=== PATIENT | male | born 1950 | race Caucasian/White ===

== ENCOUNTER 2016-10-31 05:45 | Day surgery (SDC) | payer OTHER ==
--- NOTE | 2016-10-29 12:27 | GHP ---
[f rep st] PREOP HISTORY AND PHYSICAL HISTORY OF PRESENT ILLNESS: The patient is a 66-year-old male who is admitted at this time for recurrent right inguinal hernia. Patient has noted progressive bulge and symptoms in his right groin and presents with a reducible right inguinal hernia. Risks and options have been fully discussed and we plan on a laparoscopic right inguinal hernia repair. He does have some BPH symptoms , but no chronic constipation or chronic cough. He does run lung distances. PAST MEDICAL/SURGICAL HISTORY: Past history includes a back fusion in 2014. He had previous bilateral inguinal hernia repairs many years ago. He also had a melanoma removed. No other major surgeries or hospitalizations or serious illnesses. REVIEW OF SYSTEMS: Negative on a 10-point complete review of systems, except as related to the history of present illness and the past history. He does not smoke ALLERGIES: None. MEDICATIONS: Ramipril, Flomax, Lipitor and baby aspirin. PHYSICAL EXAMINATION: GENERAL: An alert healthy 66-year-old male in no acute distress. HEAD/NECK: No icterus. No adenopathy. No oral lesions. Neck is supple. Pupils are normal. CHEST: Clear and symmetric. CARDIAC: Regular rhythm. ABDOMEN: Soft. He has a reducible recurrent right inguinal hernia. GENITALIA: Normal. EXTREMITIES: Reveal full range of motion, full pulses. IMPRESSION: Recurrent right inguinal hernia. PLAN: Laparoscopic right inguinal hernia repair. Risks and options fully discussed. He wishes to proceed. /[id number]/MODL MTDD
[2016-10-31] MEDS ORDERED: ceFAZolin 2 GM/DEXTROSE 100 ML IV ONE (05:52)
[2016-10-31] MEDS ORDERED: LR 1,000 ML IV ONE (05:52)
[2016-10-31] MEDS ORDERED: LIDOCAINE 1% 2 ML INJ ID PRN (05:52)
[2016-10-31] MEDS ORDERED: BUPIVACAINE 0.5% 30 ML SDV ONE (06:48)
[2016-10-31] MEDS ORDERED: MIDAZOLAM 2 MG/2 ML VIAL IVP ONE (06:56)
--- NOTE | 2016-10-31 06:56 | PDANEPAE ---
ANE History of Present Illness right hernia ANE Past Medical History - Cardiovascular History Hx Hypertension: No Hx Arrhythmias: No Hx Chest Pain: No Hx Coronary Artery / Peripheral Vascular Disease: No Hx CHF / Valvular Disease: No Hx Palpitations: No - Pulmonary History Hx COPD: No Hx Asthma/Reactive Airway Disease: No Hx Recent Upper Respiratory Infection: No Hx Oxygen in Use at Home: No Hx Sleep Apnea: No Sleep Apnea Screening Result - Last Documented: Negative - Neurologic History Hx Cerebrovascular Accident: No Hx Seizures: No Hx Dementia: No - Endocrine History Hx Diabetes: No - Renal History Hx Renal Disorders: No - Liver History Hx Hepatic Disorders: No - Neurological & Psychiatric Hx Hx Neurological and Psychiatric Disorders: No - Cancer History Hx Cancer: Yes Cancer History Comment: SKIN - Congenital Disorder History Hx Congenital Disorders: No - GI History Hx Gastrointestinal Disorders: No - Chronic Pain History Chronic Pain: No - Surgical History Prior Surgeries: LUMBAR FUSION 08/2014. LEONARDO ING HERNIA. SINUS ANE Review of Systems Review of systems is: negative - Exercise capacity Exercise capacity: >=4 METS METS (RN): 5 METS ANE Patient History - Allergies Allergies/Adverse Reactions: No Known Allergies Allergy (Verified 09/17/14 06:01) - Home Medications Home Medications: Atorvastatin Calcium [Lipitor 20 mg (*)] 20 mg PO DAILY 09/17/14 [Last Taken 21:00] Multivitamins [Multivitamin (*)] 1 tab PO DAILY 09/17/14 [Last Taken 10/30/16 21 :00] [place]-3 Fatty Acids [Fish Oil 1000 mg (*)] 1,000 mg PO DAILY 09/17/14 [Last Taken 10/23/16] Ramipril [Altace 1.25mg (*)] 1.25 mg PO DAILY06 09/17/14 [Last Taken 10/30/16 21 :00] Tamsulosin HCl [Flomax 0.4 MG (*)] 0.4 mg PO HS 09/17/14 [Last Taken 10/30/16 21 :00] Aspirin DAILY 10/02/16 [Last Taken 10/23/16] - NPO status NPO Since - Liquids (Date): 10/30/16 NPO Since - Liquids (Time): 21:00 NPO Since - Solids (Date): 10/30/16 NPO Since - Solids (Time): 20:00 - Anes Hx Anes Hx: no prior problems - Smoking Hx Smoking Status: Never smoked - Alcohol Use Alcohol Use: Occasionally ANE Labs/Vital Signs - Vital Signs Blood Pressure: 122/76 Heart Rate: 50 Respiratory Rate: 18 O2 Sat (%): 96 Height: 177.8 cm Weight: 74.843 kg ANE Physical Exam - Airway Neck exam: FROM Mallampati Score: Class 2 - Pulmonary Pulmonary: no respiratory distress - Cardiovascular Cardiovascular: regular rate and rhythym - ASA Status ASA Status: II ANE Anesthesia Plan Anesthesia Plan: general endotracheal anesthesia
[2016-10-31] MEDS ORDERED: ONDANSETRON 4 MG/2 ML VIAL ONE (07:01)
[2016-10-31] MEDS ORDERED: fentaNYL 100 MCG/2 ML INJ ONE ×2 (07:01→07:51)
[2016-10-31] MEDS ORDERED: KETOROLAC 30 MG/1 ML SDV ONE (07:01)
[2016-10-31] MEDS ORDERED: ROCURONIUM 50 MG/5 ML VIAL ONE (07:01)
[2016-10-31] MEDS ORDERED: DEXAMETHASONE 4 MG/ML VIAL ONE (07:01)
[2016-10-31] MEDS ORDERED: PROPOFOL/EMULSION 500 MG/50 ML BOTTLE IV ONE ×2 (07:01→08:00)
[2016-10-31] MEDS ORDERED: PROPOFOL 200 MG/20 ML VIAL ONE (07:01)
[2016-10-31] MEDS ORDERED: SUGAMMADEX SODIUM 200 MG/2 ML VIAL IVP ONE (07:02)
--- NOTE | 2016-10-31 07:06 | PDHPUP ---
History & Physical Update H&P update statement: This history and physical update is based on an assessment of the patient which was completed after admission or registration (within 24 hours), but prior to the surgery/procedure. H&P update: H&P reviewed & patient examined, no change in patient's condition since H&P completed
[2016-10-31] MEDS ORDERED: epHEDrine SULFATE 10 MG/ML SYR ONE (07:39)
[2016-10-31] MEDS ORDERED: OXYCODONE/APAP 5/325 TAB PO PRN ×2 (08:30→08:38)
--- NOTE | 2016-10-31 08:30 | POSTOPPROG ---
Post Op Note Date of Operation: 10/31/16 Surgeon: Campbell Coffman Operations And Maintenance Specialist: Marlene Landeros Anesthesiologist: Mauro Anesthesia: GET(General Endotracheal) Pre-op Diagnosis: Right inguinal hernia, possible bilateral inguinal hernia Post-op Diagnosis: Right inguinal hernia Procedure: Laproscopic right inguinal hernia repair with mesh placement Inf/Abcess present in the surg proc area at time of surgery?: No Depth: Organ Space EBL: Minimal
[2016-10-31] MEDS ORDERED: HYDROmorphONE/DILAUDID 1 MG/ML SYR IVP PRN (08:38)
[2016-10-31] MEDS ORDERED: PROMETHAZINE HCL 25 MG/ML INJ IVP PRN (08:38)
[2016-10-31] MEDS ORDERED: ACETAMINOPHEN 500 MG TAB PO PRN (08:38)
[2016-10-31] MEDS ORDERED: ALBUTEROL 3 ML DEYVIAL IH PRN (08:38)
[2016-10-31] MEDS ORDERED: fentaNYL 100 MCG/2 ML INJ IVP PRN (08:38)
[2016-10-31] MEDS ORDERED: ONDANSETRON 4 MG/2 ML VIAL IVP PRN (08:38)
[2016-10-31] MEDS ORDERED: NALOXONE HCL 0.4 MG/ML INJ IVP PRN (08:38)
[2016-10-31] MEDS ORDERED: HYDROCODONE/APAP 5/325 TAB PO PRN (08:38)
[2016-10-31] MEDS ORDERED: MEPERIDINE 25 MG/ML SYR IVP PRN (08:38)
--- NOTE | 2016-10-31 08:39 | POSTANESTH ---
Post Anesthetic Evaluation Cardiovascular Status: Normal, Stable Respiratory Status: Normal, Stable Level of Consciousness/Mental Status: Can Participate in Eval Pain Control: Adequate, Prn Tx Ordered Nausea/Vomiting Control: Adequate, Prn Tx Ordered Complications Possibly Related to Anesthesia: None Noted
--- NOTE | 2016-10-31 09:08 | GOP ---
[f rep st] OPERATIVE REPORT DATE OF OPERATION: 10/31/2016 SURGEON: Campbell Coffman MD HEATER ROOM HELPER: ANITA Landeros ANESTHESIOLOGIST: Dr. Jitendra Wade PREOPERATIVE DIAGNOSIS: Recurrent incarcerated right inguinal hernia. POSTOPERATIVE DIAGNOSIS: Recurrent incarcerated right inguinal hernia. PROCEDURE PERFORMED: LAPAROSCOPIC REPAIR OF RECURRENT RIGHT INCARCERATED INGUINAL HERNIA FINDINGS: He was found to have no evidence of herniation on the left. On the right, he had an incarcerated small direct hernia defect and a mild femoral canal weakness. DESCRIPTION OF PROCEDURE: Patient was taken to the operating room where he received satisfactory general endotracheal anesthesia by Dr. Wade. He was placed in supine position, prepped and draped in usual sterile fashion. An infraumbilical incision was made. Dissection was carried down the rectus sheath which was incised. A subfascial tunnel was developed in the preperitoneal space that was dissected free with a balloon dissector which was replaced with a CO2 insufflation trocar. Two other trocars were placed in the midline under direct vision. Fred's ligament was exposed bilaterally. On the left exploration, there was no evidence of herniation. On the right, there was incarcerated direct hernia. This was carefully reduced and dissected free without difficulty. The defect itself was less than 1.5 cm. A Covidien polyester mesh patch was placed over the inguinal floor and anchored in place with AbsorbaTack, securing it to Fred ligament, lacunar ligament, the anterior abdominal wall, the lateral abdominal wall outside the internal ring. Hemostasis was assured. Trocars were removed under direct vision. Pneumoperitoneum was released. Trocar sites were closed with 0 Vicryl for the fascia and 4-0 Monocryl subcuticular stitch for the skin. All layers were infiltrated with 0.5% Marcaine. He tolerated the procedure quite well. He was taken to the recovery room in good condition. There were no complications. PROCEDURE: Laparoscopic repair of a recurrent incarcerated right inguinal hernia and exploration of the left. /[id number]/MODL MTDD
[2016-10-31 09:24] VITALS: TEMP 97.7
[2016-10-31 10:20] VITALS: RESP 16
[2016-10-31 10:36] VITALS: BP 125/79; PULSE 51; O2SAT 95
== END 2016-10-31 10:30 | disposition home or self-care (01) ==
LOC: FSGY 05:45 → EEVIPCON 08:30 → FSGY 10:30
PROVIDERS: ATTEND Surgery
PROC: 0YU54JZ Supplement Right Inguinal Region with Synthetic Substitute, Percutaneous Endoscopic Approach (ICD-10-PCS; principal; 2016-10-31 08:30)
DX: K40.91 Unilateral inguinal hernia, without obstruction or gangrene, recurrent (principal); Z98.1 Arthrodesis status
CPT/HCPCS: 49651; C1727; C1781; J0690; J1100; J1885; J2250; J2405; J2704; J3010

== ENCOUNTER 2017-02-05 07:44 | Day surgery (SDC) | payer OTHER ==
[2017-02-05] MEDS ORDERED: ASPIRIN EC 325 MG TAB PO ONE ×2 (07:46→08:08)
[2017-02-05] MEDS ORDERED: NS 1,000 ML IV ONE (07:46)
[2017-02-05] MEDS ORDERED: DIAZEPAM 5 MG TAB PO ONE (07:46)
[2017-02-05] MEDS ORDERED: FAMOTIDINE 20 MG TAB PO ONE (07:46)
[2017-02-05] MEDS ORDERED: diphenhydrAMINE 25 MG CAP PO ONE ×2 (07:46→08:07)
--- NOTE | 2017-02-05 08:05 | CPEKG ---
Heart Rate: 53 RR Interval: 1132 P-R Interval: 140 QRSD Interval: 100 QT Interval: 416 QTC Interval: 391 P [place]: 49 QRS [place]: 41 T Wave [place]: 33 EKG Severity - OTHERWISE NORMAL ECG - EKG Impression: SINUS RHYTHM EKG Impression: EARLY PRECORDIAL R/S TRANSITION Electronically Signed By: Ramesh Armstrong 06-Feb-2017 20:46:26
[2017-02-05] MEDS ORDERED: DIAZEPAM 5 MG TAB ONE (08:08)
[2017-02-05] MEDS ORDERED: FAMOTIDINE 20 MG TAB ONE (08:08)
[2017-02-05 08:19] LABS: % IMMATURE GRANULYOCYTES 0.2 % (0.0-1.1); ABSOLUTE IMMATURE GRANULOCYTES 0.01 10^3/uL (0.00-0.10); ADD DIFF? NO; ADD MORPH? NO; ADD SCAN? NO; ATYPICAL LYMPHOCYTE FLAG 0 (0-99); FRAGMENT RBC FLAG 0 (0-99); HEMATOCRIT 45.1 % (40.0-51.0); HEMOGLOBIN 16.4 g/dL (13.7-17.5); LEFT SHIFT FLG 0 (0-99); LIPEMIA HEMOLYSIS FLAG 90 (0-99); MEAN CELL HEMOGLOBIN 31.4 pg (27.9-34.1); MEAN CELL HEMOGLOBIN CONCENTR. 36.4 g/dL (32.4-36.7); MEAN CELL VOLUME 86.4 fL (81.5-99.8); PLATELET CLUMPS FLAG 0 (0-99); PLATELET COUNT 176 10^3/uL (150-400); RED BLOOD CELL COUNT 5.22 10^6/uL (4.40-6.38); RED CELL DISTRIBUTION WIDTH 12.6 % (11.5-15.2)
[2017-02-05 08:28] LABS: INR 1.01 (0.83-1.16); PROTIME(PATIENT) 13.5 SEC (12.0-15.0)
[2017-02-05] MEDS ORDERED: LIDOCAINE 1% 300 MG/30 ML SDV ONE (08:30)
[2017-02-05] MEDS ORDERED: fentaNYL 100 MCG/2 ML INJ ONE ×2 (08:30→10:41)
[2017-02-05] MEDS ORDERED: IOPAMIDOL (ISOVUE-370) 150 ML BTL IV ONE (08:31)
[2017-02-05] MEDS ORDERED: VERAPAMIL 5 MG/2 ML VIAL ONE (08:31)
[2017-02-05] MEDS ORDERED: HEPARIN 10,000 UNIT/10 ML MDV ONE (08:31)
[2017-02-05] MEDS ORDERED: MIDAZOLAM 2 MG/2 ML VIAL ONE ×2 (08:31→10:41)
[2017-02-05 08:39] LABS: ANION GAP 11 mEq/L (8-16); CARBON DIOXIDE 22 mEq/l (22-31); CHLORIDE 108 mEq/L (97-110); GLUCOSE 79 mg/dL (70-100); POTASSIUM 4.6 mEq/L (3.5-5.2); SODIUM 141 mEq/L (134-144)
[2017-02-05 08:40] LABS: CALCIUM 8.9 mg/dL (8.5-10.4); CHOLESTEROL 141 mg/dL (140-220); CHOLESTEROL/HDL RATIO 2.01 RATIO (1.00-4.97); CREATININE 0.9 mg/dL (0.7-1.3); GLOMERULAR FILTRATION RATE > 60; HIGH DENSITY LIPOPROTEIN 70 mg/dL (40-65); LDL/HDL RATIO 0.66 RATIO (1.00-3.64); LOW DENSITY LIPOPROTEIN 46 mg/dL (80-100); MAGNESIUM 1.8 mg/dL (1.6-2.3); NON-HIGH DENSITY LIPOPROTEIN 71 mg/dL (90-129); TRIGLYCERIDE 127 mg/dL (40-150); VERY LOW DENSITY LIPOPROTEINS 25 mg/dL (8-25)
--- NOTE | 2017-02-05 09:16 | PDPROPOC ---
Sedation Plan of Care Sedation Plan of Care: vital signs stable, mental status noted, patient educated of risks, benefits, alternatives, patient can tolerate sedation ASA Classification: ASA 3 Planned drugs: fentanyl, midazolam Mallampati Score: Class 3 Mallampati Reference Image: Patient passed 3-3-2 rule?: Yes
--- NOTE | 2017-02-05 09:21 | PDGENHP ---
History & Physical Chief Complaint: abnormal nuclear stress test CAD History of Present Illness: Please see recent H and P from September. Nuclear stress test was suggestive of normal perfusion but EKG very abnormal and nonsustained VT with R on T phenomenon. Pertinent Past, Social, Family History: Please see and unchanged from H and P in September. Relevant Physical Exam: Faint murmur unchanged from before. Cardiorespiratory Assessment: lungs clear heart rate regular sinus rhythm on monitor. normal Carlos's test bilaterally
[2017-02-05] MEDS ORDERED: BIVALIRUDIN 250 MG/5 ML VIAL IV ONE ×2 (09:57→10:51)
[2017-02-05] MEDS ORDERED: ADENOSINE 90 MG/30 ML VIAL IV ONE ×2 (10:10→10:38)
[2017-02-05] MEDS ORDERED: ATROPINE SULFATE 1 MG/10 ML SYR IVP PRN (11:28)
[2017-02-05] MEDS ORDERED: HYDROCODONE/APAP 5/325 TAB PO PRN (11:28)
[2017-02-05] MEDS ORDERED: NITROGLYCERIN 0.4 MG BTL SL PRN (11:28)
[2017-02-05] MEDS ORDERED: ONDANSETRON 4 MG/2 ML VIAL IVP PRN (11:28)
[2017-02-05] MEDS ORDERED: OXYCODONE/APAP 5/325 TAB PO PRN (11:28)
--- NOTE | 2017-02-07 01:06 | CPIP ---
[f rep st] INVASIVE CARDIAC PROCEDURE PROCEDURES PERFORMED: 1. Selective coronary angiography. 2. Left heart catheterization. 3. Left ventriculogram. 4. Fractional flow reserve measurement x3 of the proximal and ostial left anterior descending, with a fractional flow reserve x4 in of the left anterior descending principle diagonal. 5. Intravascular ultrasound of the left anterior descending. 6. Angio-Seal arteriotomy repair. DIAGNOSIS: 1. Coronary artery disease. 2. High risk stress test on the basis of the patient's ventricular ectopy, nonsustained ventricular tachycardia, couplets and triplets on EKG as well as a very dramatic ST-segment sum score of greater than -15, as well as ST-segment elevation and aortic valve replacement suggestive of proximal left an terior descending or distal left main obstruction. The nuclear perfusion pattern was noted to be nor mal. PROCEDURE IN DETAIL: After informed consent was obtained, the n.p.o. status was confirmed. The jean on of the right groin was cleaned, prepped, and draped in sterile fashion. Approximately 10 cc of 1% lidocaine were utilized for local anesthesia. A micropuncture set was used to gain access to the co mmon femoral artery on the right side with single anterior puncture of the vessel. Micropuncture set was used to gain access to the right common femoral artery with single anterior puncture of vessel. This was switched out for a 6-Hebrew sheath. Patient then underwent the previously mentioned diagno stic procedure with the use of JL4 and R4 curved coronary catheters as well as a 6-Hebrew pigtail cat heter. Standard wire exchange technique was utilized for all catheter exchanges. The left main coronary lumen is widely patent and bifurcates into an LAD and circumflex system. The circumflex vessel proximally is approximately 4 mm in size and gives rise to a large obtuse marginal branch at the ostial takeoff of the circumflex obtuse marginal, which provides the majority of the fl ow to the posterolateral aspect of the left ventricle. There is a 40% to 50% ostial stenosis, which appears to be atherosclerosis. The left circumflex then continues giving rise to 2 important postero lateral ventricular branches. There is no evidence of flow-limiting obstruction, dissection, or thro mbus. There is [place]-3 flow throughout the left circumflex vessel. The proximal and ostial LAD appea rs hazy and with at least a 30% to 40% angiographic obstruction. The LAD then gives rise to an impor tant septal branch and then a large diagonal vessel. In the LAD mid segment, there is approximately a 30% to 40% eccentric obstruction of the blood vessel with a plaque. No flow-limiting obstruction i n the mid to distal LAD is identified. In the GEORGIAN caudal projection, there appears to be a short and flow-limiting obstruction of the LAD proper, which is estimated angiographically to be 75% to 80%, b est visualized again in the GEORGIAN caudal projection. The right coronary artery is dominant giving rise to the posterior descending, which is relatively sm all. 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 No flow-limiting ob struction is identified in the right coronary system. The blood vessel is large and reveals LEXIS-3 f low without obstruction. The patient underwent left heart catheterization demonstrating normal left ventricular end-diastolic pressure measured at 12 mmHg. The patient underwent left ventriculogram in the VALLE projection, demonstrating preserved and hypercontractile left ventricular systolic function. Ejection fraction is measured at 55% to 60%. With pressurized injection, there appears to be late mitral valve prolapse with associated mild mitral regurgitation. The visualized portion of thoracic aorta reveals 3 sinuses of Valsalva, which is most consistent with a trileaflet aortic valve. The pr oximal ascending thoracic aorta is the upper limits of normal in size without cezar aneurysm or disse ction. There is no evidence of aortic stenosis upon pullback across the aortic valve, aortic stenosi s, or a gradient across the left ventricular outflow tract or the aortic valve, which virtually rules out aortic stenosis or hypertrophic obstructive cardiomyopathy. We turned our attention to the ostial left main disease. A 6-Hebrew JL4 guiding catheter was used fo r guide catheter support. A Doppler flow wire then was used to perform 4 different fractional flow r eserve measurements. The fractional flow reserve initially was positive with initial placement at re st across the lesion and estimated to approximately be 0.79 with the multiplication factor. With vas odilator stress given intravenously, the patient ultimately dropped to 0.76, but upon evaluation for "drift," the drift was found to be 0.95 as opposed to 1 with equalization of pressures. At best, the patient's 1st FFR with vasodilator stress would be 0.81, which would be in the indeterminate range, and was actually measured at 0.76. The Doppler wire and catheter were recannulized in the aorta care fully, and this procedure was repeated in the LAD again, noting a 0.82 change with 0.01 catheter drif t with a 0.83 fractional flow reserve at best and at worst, of course, 0.82. This was history of pre sent repeated with the LAD diagonal, was found to be 0.81 with a drift of 0.02; again, at best 0.83, and in the indeterminate range. A final measurement was taken after recannulization with a vasodilat or stress. Fractional flow reserve of 0.76 with a drift of 0.4, which at best would be 0.80 and cons istent with a need for revascularization. Because of the indeterminate values at best and at worst, indication for possible revascularization with the raw scores of 0.76 x 2, the patient did undergo in travascular ultrasound with the use of a 0.014 Intuition wire and standard IVUS equipment. This reve aled severe eccentric plaque within the mid and proximal LAD, including involving the ostium. There is also evidence of a subtotal occlusion of a small 1st diagonal branch, which goes to the ramus terr itory. Because of the location of the plaque being quite ostial, we did not proceed with intravascul ar ultrasound. The absolute plaque area of stenosis was measured by QCA to be 0.69, and then also 0. 71, which would, of course, be consistent with a flow-limiting obstruction. FINAL IMPRESSION: Significant [place] vessel coronary disease with overall preserved ejection fractio n. The patient would be a candidate for medical therapy that would be aggressive to achieve plaque s tabilization and reduce risk of inflammation. The 2nd option would be to perform revascularization w ith either ARMIREZ to the LAD as an isolated procedure along with possible saphenous vein graft to the c ircumflex obtuse marginal territory at the time of the surgery versus a complex intervention with irving nt of the LAD ostially. It does come off at relatively right angles and could potentially be stented properly without compromise of the left main or left circumflex. However, if plaque shift occurred, then patient may well require stent implantation of the left circumflex as well, which of course, wo uld be consistent with bifurcation stenting and would be associated with increased risks long-term of subacute stent thrombosis, both in the acute clinical setting as well as very late stent thrombosis, especially if dual antiplatelet therapy were ever discontinued in that possibility/eventuality. The patient's case will be reviewed at the catheterization conference on Thursday of next week. The pa tient has been instructed to avoid strenuous activity of any kind until the films, FFR measurements, and the intravascular ultrasound images have been reviewed by the panel of experts, including the car diologist and CV surgeons. /[id number]/MODL
== END 2017-02-05 16:30 | disposition home health service (06) ==
LOC: FCATH 07:44
PROVIDERS: ATTEND Internal Medicine Cardiovascular Disease
PROC: 4A033BC Measurement of Arterial Pressure, Coronary, Percutaneous Approach (ICD-10-PCS; principal; 2017-02-05)
PROC: B245ZZ3 Ultrasonography of Left Heart, Intravascular (ICD-10-PCS; principal; 2017-02-05)
PROC: B2111ZZ Fluoroscopy of Multiple Coronary Arteries using Low Osmolar Contrast (ICD-10-PCS; principal; 2017-02-05)
PROC: B2151ZZ Fluoroscopy of Left Heart using Low Osmolar Contrast (ICD-10-PCS; principal; 2017-02-05)
PROC: 4A023N7 Measurement of Cardiac Sampling and Pressure, Left Heart, Percutaneous Approach (ICD-10-PCS; principal; 2017-02-05)
DX: I25.10 Atherosclerotic heart disease of native coronary artery without angina pectoris (principal)
CPT/HCPCS: 92978; 93005; 93458; 93571; C1753; C1769; C1887; J0153; J0583; J1644; J2250; J3010; Q9967

== ENCOUNTER 2017-02-16 06:26 | Inpatient (IN) | payer OTHER ==
[2017-02-16] MEDS ORDERED: ASPIRIN EC 325 MG TAB PO ONE ×2 (06:31→06:35)
[2017-02-16] MEDS ORDERED: diphenhydrAMINE 25 MG CAP PO ONE ×2 (06:31→06:35)
[2017-02-16] MEDS ORDERED: NS 1,000 ML IV ONE (06:31)
[2017-02-16] MEDS ORDERED: FAMOTIDINE 20 MG TAB PO ONE (06:31)
[2017-02-16] MEDS ORDERED: DIAZEPAM 5 MG TAB PO ONE (06:31)
[2017-02-16] MEDS ORDERED: DIAZEPAM 5 MG TAB ONE (06:35)
[2017-02-16] MEDS ORDERED: FAMOTIDINE 20 MG TAB ONE (06:35)
--- NOTE | 2017-02-16 06:49 | CPEKG ---
Heart Rate: 47 RR Interval: 1277 P-R Interval: 144 QRSD Interval: 98 QT Interval: 432 QTC Interval: 382 P [place]: 54 QRS [place]: 27 T Wave [place]: 43 EKG Severity - OTHERWISE NORMAL ECG - EKG Impression: SINUS BRADYCARDIA Electronically Signed By: Cassy Vasques 16-Feb-2017 07:56:10
[2017-02-16 07:04] LABS: % IMMATURE GRANULYOCYTES 0.2 % (0.0-1.1); ABSOLUTE IMMATURE GRANULOCYTES 0.01 10^3/uL (0.00-0.10); ADD DIFF? NO; ADD MORPH? NO; ADD SCAN? NO; ATYPICAL LYMPHOCYTE FLAG 10 (0-99); FRAGMENT RBC FLAG 0 (0-99); HEMATOCRIT 42.6 % (40.0-51.0); HEMOGLOBIN 15.2 g/dL (13.7-17.5); LEFT SHIFT FLG 0 (0-99); LIPEMIA HEMOLYSIS FLAG 90 (0-99); MEAN CELL HEMOGLOBIN 31.1 pg (27.9-34.1); MEAN CELL HEMOGLOBIN CONCENTR. 35.7 g/dL (32.4-36.7); MEAN CELL VOLUME 87.1 fL (81.5-99.8); PLATELET CLUMPS FLAG 0 (0-99); PLATELET COUNT 180 10^3/uL (150-400); RED BLOOD CELL COUNT 4.89 10^6/uL (4.40-6.38); RED CELL DISTRIBUTION WIDTH 12.7 % (11.5-15.2)
[2017-02-16] MEDS ORDERED: LIDOCAINE 1% 300 MG/30 ML SDV ONE (07:06)
[2017-02-16] MEDS ORDERED: fentaNYL 100 MCG/2 ML INJ ONE (07:07)
[2017-02-16] MEDS ORDERED: BIVALIRUDIN 250 MG/5 ML VIAL IV ONE ×2 (07:07→09:21)
[2017-02-16] MEDS ORDERED: IOPAMIDOL (ISOVUE-370) 150 ML BTL IV ONE ×2 (07:07→09:09)
[2017-02-16] MEDS ORDERED: MIDAZOLAM 2 MG/2 ML VIAL ONE ×5 (07:07→20:22)
[2017-02-16 07:13] LABS: INR 1.01 (0.83-1.16); PROTIME(PATIENT) 13.5 SEC (12.0-15.0)
[2017-02-16 07:22] LABS: ANION GAP 9 mEq/L (8-16); CALCIUM 8.4 mg/dL (8.5-10.4); CARBON DIOXIDE 24 mEq/l (22-31); CHLORIDE 108 mEq/L (97-110); CHOLESTEROL 126 mg/dL (140-220); CHOLESTEROL/HDL RATIO 1.97 RATIO (1.00-4.97); CREATININE 0.9 mg/dL (0.7-1.3); GLOMERULAR FILTRATION RATE > 60; GLUCOSE 89 mg/dL (70-100); HIGH DENSITY LIPOPROTEIN 64 mg/dL (40-65); LOW DENSITY LIPOPROTEIN 51 mg/dL (80-100); MAGNESIUM 1.9 mg/dL (1.6-2.3); NON-HIGH DENSITY LIPOPROTEIN 62 mg/dL (90-129); POTASSIUM 4.6 mEq/L (3.5-5.2); SODIUM 141 mEq/L (134-144); TRIGLYCERIDE 58 mg/dL (40-150); VERY LOW DENSITY LIPOPROTEINS 11 mg/dL (8-25)
--- NOTE | 2017-02-16 07:54 | PDGENHP ---
History and Physical History and Physical: patient with abnormal EKG stress test with impressive ST depression and non sustained ventricular tachycardia cath shows positive or intermediate FFR and ivus shows heterogeneous mostly soft plaque in proximal and ostial LAD. Here for elective stent indication high risk stress test, VT. Patient was shown at cath conference and revascularization versus medical management discussed. Patient and I decided on stent with provisional bypass later if necessary.
--- NOTE | 2017-02-16 07:55 | PDPROPOC ---
Sedation Plan of Care Sedation Plan of Care: vital signs stable, mental status noted, patient educated of risks, benefits, alternatives, patient can tolerate sedation ASA Classification: ASA 3 Planned drugs: fentanyl, midazolam, other (possible etomidate) Mallampati Score: Class 3 Mallampati Reference Image: Patient passed 3-3-2 rule?: Yes
[2017-02-16] MEDS ORDERED: ABCIXIMAB 10 MG/5 ML VIAL ONE ×3 (08:23→09:16)
[2017-02-16] MEDS ORDERED: HEPARIN 10,000 UNIT/10 ML MDV ONE ×3 (08:44→09:25)
[2017-02-16] MEDS ORDERED: AMIODARONE HCL 150 MG/3 ML VIAL ONE ×5 (08:44→09:25)
[2017-02-16] MEDS ORDERED: *INFUSION*TRANEX ACID 1,000 MG/NS 100 ML IV SCH (09:00)
[2017-02-16] MEDS ORDERED: VERAPAMIL 5 MG, NITROGLYCERIN 2.5 MG, HEPARIN 500 UNIT, SODIUM BICARBONATE 0.2 MEQ in L... MISC ONE (09:00)
[2017-02-16] MEDS ORDERED: ADENOSINE 6 MG/2 ML VIAL ONE ×2 (09:00→09:24)
[2017-02-16] MEDS ORDERED: DOPamine/DEXTROSE/250 ML BAG IV ONE ×2 (09:00→09:23)
[2017-02-16] MEDS ORDERED: NOREPINEPHRINE BITARTRATE 16 MG in NS 250 ML IV ONE (09:00)
[2017-02-16] MEDS ORDERED: MUPIROCIN 2% 22 GM OINT NS ONE (09:00)
[2017-02-16] MEDS ORDERED: VASOPRESSIN 20 UNIT/ML VIAL ONE (09:00)
[2017-02-16] MEDS ORDERED: MANNITOL 25% 12.5 GM/50 ML VIAL IVP ONE (09:00)
[2017-02-16] MEDS ORDERED: ATROPINE SULFATE 1 MG/10 ML SYR ONE (09:00)
[2017-02-16] MEDS ORDERED: EPINEPHrine 1 MG/10 ML SYR IVP ONE (09:00)
[2017-02-16] MEDS ORDERED: CITRATE DEXTROSE SOLN 500 ML BAG MISC ONE (09:00)
[2017-02-16] MEDS ORDERED: AMIODARONE HCL 200 ML IV SCH (09:00)
[2017-02-16] MEDS ORDERED: PHENYLEPHRINE HCL 50 MG in NS 250 ML IV ONE (09:00)
[2017-02-16] MEDS ORDERED: LIDOCAINE 2% 100 MG/5 ML SYR ONE ×2 (09:00→09:25)
[2017-02-16] MEDS ORDERED: CALCIUM CHLORIDE 1 GM/10 ML INJ ONE ×6 (09:00→17:15)
[2017-02-16] MEDS ORDERED: MAGNESIUM SULFATE 1 GM/2 ML VIAL ONE ×2 (09:00→09:26)
[2017-02-16] MEDS ORDERED: AMINOCAPROIC ACID 5 GM/20 ML VIAL IV ONE (09:00)
[2017-02-16] MEDS ORDERED: SODIUM BICARBONATE 50 MEQ/50 ML SYR ONE (09:00)
[2017-02-16] MEDS ORDERED: INSULIN REGULAR HUMAN 100 UNIT in NS 100 ML IV ONE (09:00)
[2017-02-16] MEDS ORDERED: SODIUM BICARBONATE 20 MEQ, LIDOCAINE 1% 10 ML in NORMOSOL-R 1,000 ML MISC ONE ×2 (09:00)
[2017-02-16] MEDS ORDERED: SURGIFLO MATRIX KIT WITH THROMBIN 8ml TP ONE ×2 (09:06→12:04)
[2017-02-16] MEDS ORDERED: VANCOMYCIN 1 GM VIAL ONE (09:07)
[2017-02-16] MEDS ORDERED: PROTAMINE SULFATE 50 MG/5 ML VIAL IVP ONE (09:22)
[2017-02-16] MEDS ORDERED: NA BICARBONATE 50 MEQ/50 ML VIAL ONE ×3 (09:23→17:15)
[2017-02-16] MEDS ORDERED: niCARdipine/NACL/200 ML BAG IV ONE (09:23)
[2017-02-16] MEDS ORDERED: MILRINONE/DEXTROSE/100 ML BAG IV ONE (09:23)
[2017-02-16] MEDS ORDERED: ALBUMIN 5% 250 ML BOTTLE IV ONE ×5 (09:24→17:54)
[2017-02-16] MEDS ORDERED: ceFAZolin 1 GM VIAL ONE ×5 (09:24→15:59)
[2017-02-16] MEDS ORDERED: CITRATE DEXTROSE SOLN 500 ML BAG ONE ×2 (09:25→17:24)
[2017-02-16] MEDS ORDERED: methylPREDNISolone SOD SUCC 1 GM/8 ML VIAL ONE (09:26)
[2017-02-16] MEDS ORDERED: ceFAZolin 2 GM/SWFI 2 GM/20 ML SYR IVP ONE (09:30)
[2017-02-16] MEDS ORDERED: PAPAVERINE HCL 60 MG/2 ML SDV ONE (09:46)
[2017-02-16] MEDS ORDERED: FUROSEMIDE 20 MG/2 ML VIAL ONE (11:37)
[2017-02-16] MEDS ORDERED: ROCURONIUM 50 MG/5 ML VIAL ONE ×2 (12:03→19:13)
[2017-02-16] MEDS ORDERED: PHENYLEPHRINE HCL 50 MG in NS 250 ML IV SCH (14:30)
[2017-02-16] MEDS ORDERED: WATER FOR INJ.,BACTERIOSTATIC 30 ML MDV ONE (15:10)
[2017-02-16] MEDS ORDERED: ALBUMIN 5% 500 ML BOTTLE IV ONE (15:42)
[2017-02-16 15:51] LABS: % IMMATURE GRANULYOCYTES 0.6 % (0.0-1.1); ABSOLUTE IMMATURE GRANULOCYTES 0.04 10^3/uL (0.00-0.10); ABSOLUTE NRBC COUNT 0.02 10^3/uL (0-0.01); ADD DIFF? NO; ADD MORPH? NO; ADD SCAN? YES; ATYPICAL LYMPHOCYTE FLAG 10 (0-99); FRAGMENT RBC FLAG 0 (0-99); HEMOGLOBIN 7.7 g/dL (13.7-17.5); LIPEMIA HEMOLYSIS FLAG 90 (0-99); MEAN CELL HEMOGLOBIN 30.7 pg (27.9-34.1); MEAN CELL HEMOGLOBIN CONCENTR. 35.2 g/dL (32.4-36.7); MEAN CELL VOLUME 87.3 fL (81.5-99.8); NRBC-AUTO% 0.3 % (0.0-0.2); PLATELET CLUMPS FLAG 10 (0-99); RED BLOOD CELL COUNT 2.51 10^6/uL (4.40-6.38); RED CELL DISTRIBUTION WIDTH 14.6 % (11.5-15.2)
[2017-02-16 15:53] LABS: LEFT SHIFT FLG 110 (0-99); PLATELET COUNT 31 10^3/uL (150-400)
[2017-02-16 15:55] LABS: HEMATOCRIT 21.9 % (40.0-51.0)
[2017-02-16] MEDS ORDERED: LACTULOSE 20 GM/30 ML UDCUP PO PRN (16:21)
[2017-02-16] MEDS ORDERED: BISACODYL 10 MG SUPP PR PRN (16:21)
[2017-02-16] MEDS ORDERED: POLYETHYLENE GLYCOL 3350 17 GM PKT PO PRN (16:21)
[2017-02-16] MEDS ORDERED: CEPACOL LOZENGE PO PRN (16:21)
[2017-02-16] MEDS ORDERED: ALBUMIN 5% 250 ML IV PRN (16:21)
[2017-02-16] MEDS ORDERED: METOCLOPRAMIDE 10 MG/2 ML VIAL IVP PRN (16:21)
[2017-02-16] MEDS ORDERED: MAGNESIUM HYDROXIDE 30 ML UDCUP PO PRN (16:21)
[2017-02-16] MEDS ORDERED: MEPERIDINE 25 MG/ML SYR IVP PRN (16:21)
[2017-02-16] MEDS ORDERED: fentaNYL 100 MCG/2 ML INJ IVP PRN (16:21)
[2017-02-16] MEDS ORDERED: D50W 25 GM/50 ML SYR IVP PRN (16:21)
[2017-02-16] MEDS ORDERED: ONDANSETRON 4 MG/2 ML VIAL IVP PRN (16:21)
[2017-02-16] MEDS ORDERED: MAGNESIUM SULF 2 GM/WATER 50 ML IV ONE (16:21)
[2017-02-16] MEDS ORDERED: ACETAMINOPHEN 650 MG SUPP PR PRN (16:21)
[2017-02-16] MEDS ORDERED: PANTOPRAZOLE SODIUM 40 MG VIAL IVP ONE ×2 (16:21→22:15)
[2017-02-16] MEDS ORDERED: POTASSIUM Cl (KCl) 50 ML IV PRN (16:21)
[2017-02-16] MEDS ORDERED: SODIUM CL NASAL 45 ML BTL EACHNARE PRN (16:21)
[2017-02-16] MEDS ORDERED: fentaNYL 250 MCG/5 ML INJ ONE (16:29)
[2017-02-16] MEDS ORDERED: ROCURONIUM 100 MG/10 ML VIAL ONE ×2 (16:29)
[2017-02-16] MEDS ORDERED: INSULIN REGULAR HUMAN 100 UNIT in NS 100 ML IV SCH (16:30)
[2017-02-16] MEDS ORDERED: NS 1,000 ML IV SCH (16:30)
[2017-02-16 17:17] LABS: SCAN POSITIVE
[2017-02-16 17:24] LABS: PLATELET ESTIMATE DECREASED (ADEQ)
[2017-02-16] MEDS ORDERED: MILRINONE/DEXTROSE 100 ML IV SCH (18:30)
[2017-02-16] MEDS ORDERED: BACITRACIN OINTMENT 1 PACKET TP ONE (20:08)
--- NOTE | 2017-02-16 20:08 | PDANEPAE ---
ANE History of Present Illness emergent CABG. know CAD in the LAD. Full thrombus in the LAD followed by v- fib arrest ANE Past Medical History - Cardiovascular History Hx Hypertension: Yes Hx Arrhythmias: No Hx Chest Pain: No Hx Coronary Artery / Peripheral Vascular Disease: No Hx CHF / Valvular Disease: No Hx Palpitations: No Cardiovascular History Comment: dyslipidemia - Pulmonary History Hx COPD: No Hx Asthma/Reactive Airway Disease: No Hx Recent Upper Respiratory Infection: No Hx Oxygen in Use at Home: No Hx Sleep Apnea: No - Neurologic History Hx Cerebrovascular Accident: No Hx Seizures: No Hx Dementia: No - Endocrine History Hx Diabetes: No - Renal History Hx Renal Disorders: No - Liver History Hx Hepatic Disorders: No - Neurological & Psychiatric Hx Hx Neurological and Psychiatric Disorders: No - Cancer History Hx Cancer: Yes Cancer History Comment: SKIN - Congenital Disorder History Hx Congenital Disorders: No - GI History Hx Gastrointestinal Disorders: No - Chronic Pain History Chronic Pain: No - Surgical History Prior Surgeries: LUMBAR FUSION 08/2014. LEONARDO ING HERNIA. SINUS ANE Review of Systems Review of Systems: - Exercise capacity Exercise capacity: >=4 METS ANE Patient History - Allergies Allergies/Adverse Reactions: No Known Allergies Allergy (Verified 09/17/14 06:01) - Home Medications Home medications: home medication list seen and reviewed Home Medications: Multivitamins [Multivitamin (*)] 1 tab PO BID 09/17/14 [Last Taken 02/15/17 07: 00] [place]-3 Fatty Acids [Fish Oil 1000 mg (*)] 2,000 mg PO DAILY 09/17/14 [Last Taken 02/15/17 07:00] Ramipril [Altace 1.25mg (*)] 1.25 mg PO DAILY 09/17/14 [Last Taken 02/15/17 07: 00] Aspirin [Aspirin 81mg (*)] 81 mg PO DAILY #0 10/02/16 [Last Taken 02/15/17 07:00 ] Atorvastatin Calcium [Lipitor 80 mg] 80 mg PO DAILY 02/15/17 [Last Taken 15:00] Cholecalciferol Vit D3 [Vitamin D3 2000 units tab (OTC)] 5,000 units PO DAILY [Last Taken 02/15/17 07:00] Herbals/Supplements -Info Only 1 ea PO DAILY 02/15/17 [Last Taken 02/15/17 07:00 ] Nebivolol HCl [Bystolic] 2.5 mg PO DAILY 02/15/17 [Last Taken 02/15/17 07:00] - Smoking Hx Smoking Status: Never smoked ANE Labs/Vital Signs - Labs Result Diagrams: 02/16/17 15:05 02/16/17 06:45 - Vital Signs Height: 178 cm Weight: 77.1 kg ANE Physical Exam - Airway Mouth exam: ETT in situ - Pulmonary Pulmonary: other (severe pulm edema) - Cardiovascular Cardiovascular: other (CPR in progress, v-fib underlying) ANE Anesthesia Plan Anesthesia Plan: general endotracheal anesthesia Lines/Monitors: central line, LAY Urgent/Emergent Case: Anes eval completed preop but documented later for safe timely pt care (emergently to OR from laborer pipelines. Documentation later)
[2017-02-16] MEDS: MIDAZOLAM 2 MG/2 ML VIAL IVP PRN ×3 (20:25→23:49)
[2017-02-16 20:37] LABS: IONIZED CALCIUM 0.89 MMOL/L (1.12-1.30)
[2017-02-16] MEDS ORDERED: SKIN ADHESIVE (DERMABOND) 1 EACH TP ONE (20:37)
[2017-02-16] MEDS ORDERED: HEPARIN 10,000 UNIT/10 ML MDV IV ONE (20:45)
[2017-02-16] MEDS ORDERED: BACITRACIN ZINC 14.2 GM OINTTUBE TP ONE (20:45)
[2017-02-16] MEDS ORDERED: POTASSIUM Cl (KCl) 20 MEQ/100 ML BAG IV ONE (21:03)
[2017-02-16] MEDS: POTASSIUM Cl (KCl) 100 ML IV SCH ×2 (21:05→21:56)
[2017-02-16 21:28] LABS: CALCULATED OXYGEN SATURATION 100 % (92-95); O2 CONCENTRATIION 40 % (0-100)
[2017-02-16 21:28] LABS: O2 CONCENTRATIION 40 % (0-100)
[2017-02-16] MEDS: ceFAZolin 2 GM/SWFI 2 GM/20 ML SYR IVP SCH (21:29)
[2017-02-16] MEDS ORDERED: POTASSIUM Cl (KCl) 100 ML IV SCH (21:30)
[2017-02-16] MEDS ORDERED: ceFAZolin 2 GM/DEXTROSE 100 ML IV SCH (22:00)
[2017-02-16 22:04] LABS: BASE EXCESS -7.4 mEq/L (-2.5-2.5); BICARBONATE 18 mEq/L (22-26); IONIZED CALCIUM 1.01 MMOL/L (1.12-1.30); MEASURED OXYGEN SATURATION 100 % (92-95); PCO2 39 mmHg (34-38); PO2 326 mmHg (65-75); TCO2 19 mEq/L (23-27)
[2017-02-16 22:05] LABS: % IMMATURE GRANULYOCYTES 0.3 % (0.0-1.1); ABSOLUTE IMMATURE GRANULOCYTES 0.01 10^3/uL (0.00-0.10); ADD DIFF? NO; ADD MORPH? NO; ADD SCAN? YES; ASSIST CONTROL YES; ATYPICAL LYMPHOCYTE FLAG 0 (0-99); FRAGMENT RBC FLAG 0 (0-99); HEMATOCRIT 20.4 % (40.0-51.0); HEMOGLOBIN 7.3 g/dL (13.7-17.5); LIPEMIA HEMOLYSIS FLAG 90 (0-99); MEAN CELL HEMOGLOBIN 31.3 pg (27.9-34.1); MEAN CELL HEMOGLOBIN CONCENTR. 35.8 g/dL (32.4-36.7); MEAN CELL VOLUME 87.6 fL (81.5-99.8); MEAN PLATELET VOLUME 10.6 fL (8.7-11.7); O2 CONCENTRATIION 45 % (0-100); P/F RATIO 724 RATIO; PLATELET CLUMPS FLAG 10 (0-99); RED BLOOD CELL COUNT 2.33 10^6/uL (4.40-6.38); RED CELL DISTRIBUTION WIDTH 14.2 % (11.5-15.2); TOTAL RATE 12
[2017-02-16 22:10] LABS: LEFT SHIFT FLG 230 (0-99)
[2017-02-16 22:12] LABS: PLATELET COUNT 24 10^3/uL (150-400)
[2017-02-16 22:31] LABS: ALANINE AMINOTRANSFERASE 74 IU/L (21-72); ALBUMIN 1.3 g/dL (3.5-5.0); ANION GAP 20 mEq/L (8-16); ASPARTATE AMINOTRANSFERASE 395 IU/L (17-59); BILIRUBIN,TOTAL 1.2 mg/dL (0.1-1.4); CALCIUM 7.1 mg/dL (8.5-10.4); CARBON DIOXIDE 18 mEq/l (22-31); CHLORIDE 104 mEq/L (97-110); CREATININE 0.8 mg/dL (0.7-1.3); GLOMERULAR FILTRATION RATE > 60; GLUCOSE 106 mg/dL (70-100); POTASSIUM 4.7 mEq/L (3.5-5.2); SODIUM 142 mEq/L (134-144)
--- NOTE | 2017-02-16 22:42 | CPEKG ---
Heart Rate: 80 RR Interval: 750 P-R Interval: 196 QRSD Interval: 106 QT Interval: 440 QTC Interval: 508 QRS [place]: 52 T Wave [place]: 94 EKG Severity - ABNORMAL ECG - EKG Impression: INCOMPLETE ANALYSIS DUE TO MISSING DATA IN PRECORDIAL LEAD(S) EKG Impression: ATRIAL PACED WITH VENTRICULAR SPIKES BUT DUCKWATER V RHYTHM EKG Impression: NONSPECIFIC REPOL ABNORMALITY, DIFFUSE LEADS EKG Impression: LOW VOLTAGE EKG Impression: PROLONGED QT INTERVAL EKG Impression: COMPARED WITH 02/16/2017 AT 6:40 A.M., PACING NOW PRESENT. DECREASED VOLTAGE. Electronically Signed By: Karma Ryder 17-Feb-2017 18:54:07
[2017-02-16 22:46] LABS: ALKALINE PHOSPHATASE < 20 IU/L (38-126)
[2017-02-16] MEDS ORDERED: FUROSEMIDE 120 MG in D5W 50 ML IV ONE (23:45)
[2017-02-16 23:59] LABS: PLATELET ESTIMATE DECREASED (ADEQ); SCAN NEGATIVE
[2017-02-17 01:10] LABS: IONIZED CALCIUM 1.03 MMOL/L (1.12-1.30)
[2017-02-17] MEDS ORDERED: PROTAMINE SULFATE 50 MG/5 ML VIAL IVP ONE ×3 (02:00→03:30)
[2017-02-17] MEDS ORDERED: DEXMEDETOMIDINE/NS 4MCG/ML 100 ML BTL IV ONE (02:20)
[2017-02-17] MEDS ORDERED: DEXMEDETOMIDINE IN 0.9 % NACL 100 ML IV SCH (02:30)
[2017-02-17] MEDS ORDERED: DEXMEDETOMIDINE HCL 400 MCG in NS 100 ML IV SCH (02:30)
[2017-02-17] MEDS ORDERED: SODIUM BICARBONATE 50 MEQ/50 ML SYR IVP ONE (02:45)
[2017-02-17 02:50] LABS: INR 2.32 (0.83-1.16); PROTIME(PATIENT) 25.5 SEC (12.0-15.0)
[2017-02-17 02:54] LABS: IONIZED CALCIUM 0.62 MMOL/L (1.12-1.30)
[2017-02-17] MEDS ORDERED: NA BICARBONATE 50 MEQ/50 ML VIAL IV ONE ×2 (03:00→04:15)
[2017-02-17] MEDS ORDERED: CALCIUM CHLORIDE 1 GM/10 ML INJ IVP ONE ×3 (03:15→12:00)
[2017-02-17 03:17] LABS: APTT 135.2 SEC (23.0-38.0)
[2017-02-17] MEDS: MUPIROCIN 2% 22 GM OINT NS SCH ×2 (03:19→15:53)
[2017-02-17] MEDS ORDERED: SODIUM BICARBONATE 50 MEQ/50 ML SYR IV ONE (03:30)
[2017-02-17 04:19] LABS: INR 2.34 (0.83-1.16); IONIZED CALCIUM 0.59 MMOL/L (1.12-1.30); PROTIME(PATIENT) 25.6 SEC (12.0-15.0)
[2017-02-17] MEDS ORDERED: EPINEPHrine 1 MG/10 ML SYR IVP ONE (04:40)
[2017-02-17] MEDS ORDERED: CALCIUM CHLORIDE 1 GM/10 ML INJ ONE (04:40)
[2017-02-17] MEDS ORDERED: SODIUM BICARBONATE 50 MEQ/50 ML SYR ONE (04:41)
[2017-02-17] MEDS: POTASSIUM Cl (KCl) 100 ML IV SCH (04:51)
[2017-02-17 05:22] VITALS: PULSE 74; TEMP 93.6
[2017-02-17 06:11] LABS: IONIZED CALCIUM 1.04 MMOL/L (1.12-1.30)
--- NOTE | 2017-02-17 06:19 | GCON ---
[f rep st] CONSULTATION SAT MATH TUTOR CONSULTATION REASON FOR ADMISSION: Status post coronary bypass graft, status post arrest, coronary artery disease . The patient is a 66-year-old white male with a past medical history of hypercholesterolemia, hyper tension, benign prostatic hypertrophy. The patient examined postoperatively after receiving a kinney ry bypass graft. He apparently had a nuclear stress test that was suggestive of normal perfusion, bu t EKG was abnormal. He underwent cardiac catheterization today during which he underwent a cardiac a rrest. He was resuscitated twice initially and then required sustained CPR. He was brought to the perating room and subsequently underwent coronary bypass graft. This was complicated by significant bleeding, probable DIC, and a retroperitoneal bleed. Currently, he is sedated, on bypass, on mechani fabi ventilation. All history is gleaned from the medical record. PAST MEDICAL HISTORY: Is again, significant for hypertension, benign prostatic hypertrophy, hypercho lesterolemia. He also had a melanoma in the past. PAST SURGICAL HISTORY: He has had melanoma resection, sinus surgery, hernia repair, and extensive ba ck surgery. SOCIAL HISTORY: No history of tobacco use. Infrequent alcohol use. He is an emergency room physici an. He is with two children. FAMILY HISTORY: Significant for breast cancer and coronary artery disease. PHYSICAL EXAM: VITAL SIGNS: Blood pressure is 53/49, pulse is 80, respirations are 6. GENERAL: He is a well developed 66-year-old white male who is sedated/obtunded on mechanical ventilation and car diac bypass. HEENT: Exam was deferred. Throat, endotracheal tube is in good position. NECK: Supp le. There is no cervical adenopathy. HEART: Regular rate and rhythm. CHEST: Is open. There are multiple chest tubes as well as cardiac bypass tubes present. ABDOMEN: Distended. Bowel sounds are not appreciated. EXTREMITIES: Bilateral lower extremity edema. LABORATORIES: White count 6.2, hemoglobin 7.7, hematocrit 21, platelet count is 31. Fibrinogen is p ending. INR 1.01. Sodium 141, potassium 4.6, chloride 108, CO2 is 24, BUN 17, creatinine 0.9, gluco se is 89. IMPRESSION: 1. Coronary artery disease. 2. Status post cardiac arrest with prolonged resuscitation. 3. Coronary bypass graft. 4. Probable disseminated intravascular coagulation. 5. Shock. 6. Acute respiratory failure secondary to above. 7. Anemia. 8. Status post cardiac bypass. 9. Possible anoxic brain injury. RECOMMENDATIONS: 1. Continue mechanical ventilation with small tidal volumes and rate. 2. Cardiac bypass as you are doing. 3. Pressors as needed. 4. Transfusion when appropriate. 5. Follow chemistries and H and H closely. Thank you very much for allowing me to participate in the care of this patient. Will follow along wi th you. /[id number]/MODL
--- NOTE | 2017-02-17 07:04 | GOP ---
[f rep st] OPERATIVE REPORT DATE OF OPERATION: 02/16/2017 SURGEON: Humberto Lujan MD HUMIDIFIER MAINTENANCE WORKER: Elizabeth Abdalla, PAC. PREOPERATIVE DIAGNOSIS: Coronary artery disease, status post percutaneous coronary intervention, status post cardiac arrest, status post Impella support device, ongoing cardiopulmonary resuscitation. POSTOPERATIVE DIAGNOSIS: Coronary artery disease, status post percutaneous coronary intervention, status post cardiac arrest, status post Impella support device, ongoing cardiopulmonary resuscitation. PROCEDURE PERFORMED: Emergent salvage coronary artery bypass graft x2 with the left internal mammary artery to the left anterior descending, an aortocoronary reverse saphenous vein graft to the obtuse marginal, endoscopic and open vein harvest from the left lower extremity-primarily the thigh, left groin exploration, removal of Impella device, removal of Impella sheath and open closure of left common femoral artery, open removal of left common femoral vein sheath. FINDINGS: INDICATIONS: This is a 66-year-old gentleman who had a proximal left anterior descending lesion. He underwent attempted percutaneous intervention this morning and on placement of the guide catheter, was immediately noted to have thrombosed the left main. He had a cardiac arrest and CPR was begun. An intra- aortic balloon was initially placed and this was followed by placement of an Impella device via the left groin. The patient continued to have an unstable rhythm and ongoing CPR and attempts at reopening were not successful. The patient was brought emergently to the operating room with ongoing CPR. DESCRIPTION OF PROCEDURE: The patient was expeditiously prepped and draped in the supine position with Impella support, albeit with lowish outputs. The CPR was continued as we prepped and draped and of note, the patient had venous sheaths in the right and left groins, the Impella in the left groin, an arterial sheath in the right groin, and the right iliac artery evidently was known to have a proximal retrograde dissection. We performed emergent sternotomy, converted from external CPR to internal CPR, systemically heparinized the patient, placed an ascending aortic arterial cannula and a 2- stage venous cannula, and commenced cardiopulmonary bypass. The cannulas were secured with pursestrings and the heart decompressed. We then expeditiously harvested the left internal mammary artery as well as began saphenous vein harvest from the left lower extremity in an endoscopic fashion, followed by an addition of open exploration of the wound and closure at the completion of the case. We then cross-clamped the aorta and gave retrograde cardioplegic solution. Intermittent cardioplegic solution was given during distals. The left internal mammary artery was then anastomosed end-to-side to the left anterior descending and then the mammary pedicle was pexed to the epicardium. The saphenous vein was then anastomosed end-to-side to the obtuse marginal with running 7-0 Prolene. Then with the cross-clamp in place and perfusing the heart through the vein and the mammary, we performed a 4.8 mm punch aortotomy and a proximal anastomosis end-to-side to the aorta with running 6-0 Prolene. The aortic cross-clamp was removed as we de-aired the aorta and vein graft and we then inspected for hemostasis. The patient had a diffuse coagulopathy; however, we gradually controlled sternal bleeding and subcutaneous bleeding from our expeditious entry. The patient was loaded with milrinone and Levophed added and we attempted to wean from cardiopulmonary bypass, but the patient appeared to have severe myocardial edema of the entire left ventricle with circumferential what appeared to be hypertrophy, but this was evidently not present previously on his echo. This diffuse edema nearly completely obliterated the LV lumen and limited the utility of the Impella device, as well as limited filling of the LV. The patient had considerable immediate rise in his pulmonary pressures palpably with filling of the RV. The RV, however, did appear to be functioning well and of interest, the patient had circumferential function of the LV despite the severe edema. In addition to this edema in the ventricle, the patient had profuse watery drainage from the endotracheal tube and in fact, over the course of the postoperative period, drained approximately 2 L or more of serous fluid from the endotracheal tube. This intermittently improved and seemed to be aided by the Impella device from time to time. A transesophageal echo probe had been inserted during the procedure and revealed circumferential cardiac function early, but he gradually had diminishing anterior wall function as reperfusion continued. Ultimately, on the last transesophageal echo pictures with filling of the left ventricle, the patient continued to have severe thickening of the LV wall circumferentially and in addition, had decreased anterior wall motion, mild lateral wall hypokinesis, but fairly good function in the septum. The RV initially appeared to function well throughout; however, as time went on, the RV also became a little bit sluggish, presumably due to metabolic factors. With the patient's poor lung function due to profuse pulmonary edema and drainage from the endotracheal tube, we were not able to wean from cardiopulmonary bypass or convert to left ventricular and right ventricular support devices and elected to treat the edema on cardiopulmonary bypass. We obtained hemostasis as feasible with ongoing full heparinization and placed drains in the left chest and the mediastinum. We then left the sternum unclosed , but covered the wound with an Esmarch dressing and connected the drains to sump suctions on the heart/lung machine for return and sealed the wound with Ioban. We then inspected the left lower extremity which had considerable venous bleeding from the endoscopic harvest site. This necessitated opening the length of the thigh endoscopic harvest up toward the groin, at which point bleeding from venous branches from the harvest site were noted and these were controlled and then oozing was controlled with oversew of running 2-0 Vicryl and the skin was closed with jerry. We then attempted another wean after floating a Garner-Morgan catheter, but the patient had only minimal rise in his pulmonary artery pressures even with filling. He had intermittent function of his Impella device and appeared to have poor LV function and poor diastolic compliance limiting weaning. He also had profuse endotracheal tube drainage reoccur. The Impella device was checked in position and slightly repositioned more toward the LV outflow tract by Dr. Armstrong under both fluoroscopic and then transcutaneous echo guidance and appeared to have better function of the Impella which had had low outputs intermittently previously. In addition, fluoroscopic guidance for Garner-Morgan placement was performed and we confirmed the Garner-Morgan to be in the pulmonary artery. His wedge appeared to be low when the Impella was running. We then planned to take the patient to the intensive care unit to rest the lungs to allow conversion to either LVAD and RVAD or potentially weaning at a later time; however, as we watched him in the operating room for a period of time, he developed decreasing venous return and had blood product requirements and was noted to be bleeding from the left groin. This was around the Impella sheath, as well as through other needle holes in the left groin with fairly profuse bleeding. It was felt the Impella needed to be removed. Prior to removing the Impella, we felt it was necessary to confirm that the LV would be decompressed without the Impella and hence, we removed the Esmarch dressings on the chest. We inspected the chest and incidentally noted a large right hemothorax which was drained. An additional drain was placed in the right chest and also connected to the sump suctions. We then once again after discontinuing the Impella by pulling it through the sheath, inspected the heart in an open fashion and it was noted that there was no distention or pulmonary hypertension developing over a period of time and hence, we replaced sterile dressings on the chest. We then turned our attention to the left groin after again sterilely prepping and draping and we performed a transverse incision and carried dissection down along the venous and arterial sheaths in the left groin with a very large sheath in the left common femoral artery. He was seen to be bleeding around the sheath and we placed 2 pursestring 4-0 Prolenes after identifying the left common femoral artery and then removed the sheath and secured these pursestrings. This improved the bleeding but he had diffuse oozing from all the tissues divided for the open exploration and this was not able to be successfully controlled with full heparinization and hence, we placed another sump drain in the left groin and closed the skin with jerry and attached the sump drain to the heart/lung bypass machine. This appeared to obtain satisfactory hemostasis in both the chest and groin, albeit, this was mainly due to controlled drainage and the patient continued to have intermittent significant drainage from the endotracheal tube; however, this appeared to be improving with time. Throughout all this, the patient maintained a satisfactory mean arterial pressure, most commonly in the 60s, and this was on low-dose Levophed at 5 mcg/ min. After a period of quasi-stability and no further external blood loss, albeit with continued drainage of multiple wounds into the pump, we then transported the patient to the intensive care unit with ongoing cardiopulmonary bypass. /[id number]/MODL MTDD
[2017-02-17 07:42] LABS: HEMATOCRIT 27.2 % (40.0-51.0); HEMOGLOBIN 9.8 g/dL (13.7-17.5); IONIZED CALCIUM 1.19 MMOL/L (1.12-1.30); LIPEMIA HEMOLYSIS FLAG 90 (0-99); MEAN CELL HEMOGLOBIN 30.2 pg (27.9-34.1); PLATELET CLUMPS FLAG 10 (0-99); RED BLOOD CELL COUNT 3.24 10^6/uL (4.40-6.38)
[2017-02-17 07:46] VITALS: O2SAT 98
[2017-02-17 07:47] LABS: PLATELET COUNT 33 10^3/uL (150-400)
[2017-02-17 07:57] LABS: INR 2.42 (0.83-1.16); PROTIME(PATIENT) 26.3 SEC (12.0-15.0)
[2017-02-17 08:02] LABS: O2 CONCENTRATIION 40 % (0-100)
[2017-02-17 08:03] LABS: CALCULATED OXYGEN SATURATION 100 % (92-95); O2 CONCENTRATIION 40 % (0-100)
[2017-02-17 08:03] LABS: CALCULATED OXYGEN SATURATION 100 % (92-95); O2 CONCENTRATIION 40 % (0-100)
[2017-02-17 08:03] LABS: O2 CONCENTRATIION 45 % (0-100)
[2017-02-17 08:03] LABS: O2 CONCENTRATIION 40 % (0-100)
[2017-02-17 08:03] LABS: O2 CONCENTRATIION 40 % (0-100)
[2017-02-17 08:03] LABS: O2 CONCENTRATIION 40 % (0-100)
[2017-02-17 08:03] LABS: CALCULATED OXYGEN SATURATION 78 % (92-95); O2 CONCENTRATIION 40 % (0-100)
[2017-02-17 08:03] LABS: O2 CONCENTRATIION 40 % (0-100)
[2017-02-17 08:15] LABS: APTT 139.6 SEC (23.0-38.0)
[2017-02-17 08:36] LABS: ALANINE AMINOTRANSFERASE 200 IU/L (21-72); ALBUMIN 1.2 g/dL (3.5-5.0); ANION GAP 18 mEq/L (8-16); ASPARTATE AMINOTRANSFERASE 397 IU/L (17-59); BILIRUBIN,TOTAL 0.9 mg/dL (0.1-1.4); CALCIUM 8.9 mg/dL (8.5-10.4); CARBON DIOXIDE 20 mEq/l (22-31); CHLORIDE 110 mEq/L (97-110); CREATININE 1.2 mg/dL (0.7-1.3); GLOMERULAR FILTRATION RATE > 60; GLUCOSE 124 mg/dL (70-100); POTASSIUM 3.9 mEq/L (3.5-5.2); SODIUM 148 mEq/L (134-144); TOTAL PROTEIN 2.2 g/dL (6.3-8.2)
[2017-02-17 08:38] LABS: ALKALINE PHOSPHATASE < 20 IU/L (38-126)
--- NOTE | 2017-02-17 08:43 | PDINTPN ---
Housekeeper Manager Progress Note Assessment/Plan: Assessment/plan: * Coronary disease * Status post coronary artery bypass graft * DIC * Status post cardiac arrest with prolonged resuscitation * Possible anoxic brain injury * Cardiomyopathy-echo pending * Acute renal failure-consider Renal consultation * Acute respiratory failure-on vent with very low rate and tidal * Severe pulmonary edema * Cardiopulmonary bypass * Anemia with multiple blood transfusions * Shock * GI bleed Subjective: Sedated on mechanical ventilation Objective: Vital Signs Temp Pulse Resp BP Pulse Ox 34.2 C L 74 10 L 98 02/17/17 08:00 02/17/17 08:00 02/17/17 08:00 02/17/17 08:00 Laboratory Results 02/17/17 07:30 02/16/17 02/17/17 02/18/17 05:59 05:59 05:59 Intake Total 39502 1290 Output Total 9035 595 Balance 3563 695 PT 26.3 SEC (12.0-15.0) H 02/17/17 07:30 INR 2.42 (0.83-1.16) H 02/17/17 07:30 Laboratory Results 02/17/17 07:30 02/17/17 08:07 02/17/17 02/17/17 08:07 01:04 POC Blood Source OTHER Patient Temperature 34.0 DEGREES DEGREES POC pH 7.43 (7.35 - 7.45) POC pCO2 33 mmHg L mmHg (34 - 38) POC HCO3 23 mEq/L mEq/L (22 - 26) POC Total CO2 24 mEq/L mEq/L (23 - 27) POC Base Excess -2.0 mEq/L mEq/L (-2.5 - 2.5) POC O2 Sat (Calc) Pending POC FiO2 40 % % Calcium 8.9 mg/dL D mg/dL (8.5 - 10.4) Total Bilirubin 0.9 mg/dL mg/dL (0.1 - 1.4) AST 397 IU/L H IU/L (17 - 59) ALT 200 IU/L H IU/L (21 - 72) Alkaline Phosphatase < 20 IU/L L IU/L (38 - 126) Total Protein 2.2 g/dL L g/dL (6.3 - 8.2) Albumin 1.2 g/dL L g/dL (3.5 - 5.0) Chest [id number] by myself. Endotracheal tube in good position. Multiple lines are present. No evidence pneumothorax. Diffuse dense pulmonary edema. - Time Spent With Patient Time Spent With Patient: 45 min of critical care time spent with patient. Case discussed with nurse, echo vascular technologist and Respiratory therapy. Physical Exam - Physical Exam General Appearance: No alert EENT: other (Significant facial swelling) Neck: non-tender Respiratory: No normal breath sounds (Minimal breath sounds) Cardiac/Chest: other (Unable to appreciate) Abdomen: distended, No normal bowel sounds Male Genitalia: deferred Rectal: deferred Extremities: normal inspection, swelling Neuro/Psych: other (Sedated), No alert ICD10 Worksheet Patient Problems: Problems Problem Status Onset Acute blood loss anemia Acute CAD in in[place]iat artery Acute Cardiogenic shock Acute Coagulopathy Acute Left anterior descending (LAD) coronary artery thrombosis Acute S/P CABG x 2 Acute ~02/16/17
[2017-02-17] MEDS ORDERED: ALBUMIN 5% 500 ML BOTTLE IV ONE ×3 (08:53→10:00)
[2017-02-17] MEDS ORDERED: FAMOTIDINE 20 MG/NACL 50 ML IV ONE (09:00)
[2017-02-17] MEDS ORDERED: FAMOTIDINE 20 MG in NS 100 ML IV ONE (09:00)
[2017-02-17] MEDS ORDERED: ASPIRIN 81 MG CHEWABLE TAB TUBE PRN (09:00)
[2017-02-17 09:27] VITALS: RESP 12
[2017-02-17] MEDS ORDERED: NOREPINEPHRINE BITARTRATE 16 MG in NS 250 ML IV SCH (09:30)
--- NOTE | 2017-02-17 09:33 | ASMTCMCOM ---
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 Has a hx of hypercholesterolemia, HTN. In concrete laborer S/P arrest, cardiogenic shock, S/P CABG x 2. CM to follow. Date Signed: 02/17/2017 09:33 AM Electronically Signed By:Marissa Daigle LCSW
[2017-02-17 09:40] LABS: CALCULATED OXYGEN SATURATION 100 % (92-95); O2 CONCENTRATIION 45 % (0-100)
[2017-02-17] MEDS: ceFAZolin 2 GM/SWFI 2 GM/20 ML SYR IVP SCH ×2 (09:42→15:52)
[2017-02-17 09:46] LABS: PLATELET ESTIMATE DECREASED (ADEQ)
[2017-02-17] MEDS ORDERED: IOPAMIDOL (ISOVUE-300) 100 ML BTL ONE (10:06)
[2017-02-17 10:07] LABS: IONIZED CALCIUM 1.07 MMOL/L (1.12-1.30)
[2017-02-17] MEDS ORDERED: ALBUMIN 5% 500 ML IV ONE (12:00)
[2017-02-17] MEDS ORDERED: ROCURONIUM 100 MG/10 ML VIAL ONE (12:51)
[2017-02-17] MEDS ORDERED: ROCURONIUM 100 MG/10 ML VIAL IV ONE (13:15)
--- NOTE | 2017-02-17 17:03 | POSTANESTH ---
Post Anesthetic Evaluation Cardiovascular Status: Other, See Comment Respiratory Status: Other, See Comment Level of Consciousness/Mental Status: Other, See Comment Complications Possibly Related to Anesthesia: Other, See Comments ( Unfortunately the patient had non-survivable injuries and at ~1515 today.)
[2017-02-17 17:24] LABS: O2 CONCENTRATIION 45 % (0-100)
[2017-02-17 17:24] LABS: CALCULATED OXYGEN SATURATION 100 % (92-95); O2 CONCENTRATIION 45 % (0-100)
--- NOTE | 2017-02-17 19:52 | GDS ---
[f rep st] DISCHARGE SUMMARY ADMISSION DIAGNOSES: 1. Proximal and ostial left anterior descending disease. 2. Abnormal stress test. 3. Nonsustained ventricular tachycardia. 4. Planned complex intervention of the ostial left anterior descending. DISCHARGE DIAGNOSES: 1. Cardiac arrest. 2. Ventricular fibrillation in the laboratory technologist secondary to left main thrombosis on initial angiography with subsequent cardiac arrest. HISTORY OF PRESENT ILLNESS: Please see the recently dictated H and P. 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 This demonstrated a 71% ostial stenosis of the LAD. Options were present ed as medical therapy versus bypass surgery with RAMIREZ to the LAD versus high-risk intervention. Afte r careful consideration, we opted for the high-risk interventional with strategy. HOSPITAL COURSE: The patient was admitted and planned for elective intervention. With initial injec tion, there was evidence of thrombosis involving the ostial LAD lesion with closure of the left main and left circumflex vessels. The patient subsequently experienced cardiac arrest with ventricular fi brillation and underwent ACLS guided life support with full continuous CPR, intermittent shock, place ment of a temporary pacemaker wire, balloon pump and Impella. The patient was taken to the OR where open cardiac massage was performed. Subsequently, the patient was placed on bypass and underwent a L JOSH to the LAD and vein graft to the circumflex OM. His postoperative course was complicated by exte nsive bleeding and ultimately by coagulopathy and renal failure. This morning, we decided to perform a CT of his head to evaluate his brain function. He was found to have significant intracranial hemorrhage as well as multiple infarcts involving the frontal lobe, ba desmond ganglia and also part of the cerebellum. Because of his very poor neurological prognosis, we trinity cted withdrawal support today, after appropriate consultation and discussion with the family and [facility] power of assistant city attorney, proxy, his , Vijay. The time of is 3:16 in the afternoon of . /[id number]/MODL
[2017-02-18] MEDS ORDERED: SENNOSIDES/DOCUSATE SODIUM TAB PO PRN (09:00)
== END 2017-02-17 15:15 | disposition expired | DRG 216 ==
LOC: FCATH 06:26 → EEVIPCON 08:51 → F2N 08:51
PROVIDERS: ADMIT Internal Medicine Cardiovascular Disease; ATTEND Internal Medicine Cardiovascular Disease
DX: I21.02 ST elevation (STEMI) myocardial infarction involving left anterior descending coronary artery (principal); D65 Disseminated intravascular coagulation [defibrination syndrome]; I47.2 Ventricular tachycardia; I49.01 Ventricular fibrillation; I46.2 Cardiac arrest due to underlying cardiac condition; I61.4 Nontraumatic intracerebral hemorrhage in cerebellum; I61.0 Nontraumatic intracerebral hemorrhage in hemisphere, subcortical; I25.10 Atherosclerotic heart disease of native coronary artery without angina pectoris; N17.9 Acute kidney failure, unspecified; R57.0 Cardiogenic shock; I10 Essential (primary) hypertension
CPT/HCPCS: 82947-QW; C1725; C1757; C1769; C1887; C9606; J0130; J0153; J0171; J0282; J0461; J0583; J0690; J1265; J1644; J1815; J1940; J2001; J2150; J2250; J2260; J2370; J2440; J2720; J2930; J3010; J3370; J7060; P9012; P9016; P9017; P9021; P9035; P9041; Q9967; Q9988